=== PATIENT | female | born 1995 | race Caucasian/White ===

== ENCOUNTER → 2024-10-19 06:46 | Outpatient (REF) | payer BC, SELFPAY ==
[2024-10-19 07:35] LABS: Hematocrit 35.7 % (37.0-47.0); Hemoglobin 11.4 g/dL (12.0-16.0); Mean Corp Hgb Conc. 31.9 g/dL (33.0-37.0); Mean Corpuscular Volume 95.2 fL (81.0-99.0); Nucleated Red Blood Cells % 0 %; Platelet Count 239 10^3/uL (130-400); Red Cell Dist. Width 12.4 % (11.5-14.5)
[2024-10-19 08:05] LABS: ALT (SGPT) 21 U/L (0-35); AST (SGOT) 25 U/L (14-36); Albumin 4.5 g/dl (3.5-5.0); Alkaline Phosphatase 63 U/L (38-126); Blood Urea Nitrogen 11 mg/dl (7-17); Calcium 9.4 mg/dl (8.4-10.2); Carbon Dioxide 25 mmol/L (22-30); Chloride 106 mmol/L (98-107); Glucose 85 mg/dl (70-99); HDL Cholesterol 69 mg/dl; LDL Cholesterol, Calculated 94 mg/dl; Potassium 4.2 mmol/L (3.5-5.1); Sodium 139 mmol/L (135-145); Total Protein 7.4 g/dl (6.3-8.2); Very Low Density Lipoprotein 53 mg/dl (0-30); eGFR > 60.00
[2024-10-19 08:33] LABS: Free T3 3.61 pg/ml (2.77-5.27); Vitamin D, 25-OH*** 40.8 ng/mL (30-80)
[2024-10-19 08:45] LABS: TSH 1.16 uIU/ml (0.47-4.68)
[2024-10-19 09:05] LABS: Vitamin B12 703 pg/ml (239-931)
[2024-10-20 20:54] LABS: Thyroglobulin Antibodies 64.2 IU/mL (0.0-4.0)
== END ==
LOC: RAD 06:46
PROVIDERS: ATTENDING PHYSICIAN Nurse Practitioner
DX: E01.0 Iodine-deficiency related diffuse (endemic) goiter (principal); Z00.00 Encounter for general adult medical examination without abnormal findings; G43.909 Migraine, unspecified, not intractable, without status migrainosus; R53.82 Chronic fatigue, unspecified; E55.9 Vitamin D deficiency, unspecified; R25.1 Tremor, unspecified
CPT/HCPCS: 36415; 76536; 80053; 80061; 82306; 82607; 84436; 84439; 84443; 84481; 85025; 86376; 86800